=== PATIENT | male | born 1995 | race Hispanic/Latino ===

== ENCOUNTER 2023-04-14 10:13 | Emergency (ER) | payer OTHER ==
[2023-04-14] MEDS ORDERED: LIDOCAINE 1% MPF 5 ML VIAL ONE (10:48)
--- NOTE | 2023-04-14 10:57 | EDPHYS ---
Physician Documentation [facility] Name: Jesus Hernandez Age: 27 yrs Sex: Male : 1995 Arrival Date: 04/14/2023 Time: 10:13 Bed 11 Private MD: ED Physician Karl Lawrence HPI: 04/14 10:21 This 27 yrs old Male presents to ER via Ambulatory with complaints of jh7 Laceration To Hand. 10:21 The patient has a laceration related to: working, from a knife, occurred at work, and 7 pt reports knife was dirty. The laceration(s) is(are) located on the left hand. Onset: The symptoms/episode began/occurred acutely. Associated signs and symptoms: Pertinent negatives: deformity, dizziness, heavy bleeding, loss of consciousness, suspected foreign body. Historical: - Allergies: 10:21 No Known Allergies; ll1 - PMHx: 10:21 None; ll1 - PSHx: 10:21 Appendectomy; ll1 - Immunization history:: Adult Immunizations up to date. - Social history:: Smoking status: Patient denies any tobacco usage or history of. ROS: 10:21 Constitutional: Negative for fever, chills, and weight loss, Eyes: Negative for injury, jh7 pain, redness, and discharge, Neck: Negative for injury, pain, and swelling, Cardiovascular: Negative for chest pain, palpitations, and edema, Respiratory: Negative for shortness of breath, cough, wheezing, and pleuritic chest pain, Abdomen/GI: Negative for abdominal pain, nausea, vomiting, diarrhea, and constipation, Back: Negative for injury and pain, MS/Extremity: Negative for injury and deformity, Neuro: Negative for headache, weakness, numbness, tingling, and seizure. 10:21 Skin: Positive for laceration(s). 10:21 All other systems are negative. Exam: 10:21 Constitutional: This is a well developed, well nourished patient who is awake, alert, jh7 and in no acute distress. Head/Face: Normocephalic, atraumatic. Cardiovascular: Regular rate and rhythm with a normal S1 and S2. No gallops, murmurs, or rubs. Normal PMI, no JVD. No pulse deficits. Respiratory: Lungs have equal breath sounds bilaterally, clear to auscultation and percussion. No rales, rhonchi or wheezes noted. No increased work of breathing, no retractions or nasal flaring. Abdomen/GI: Soft, non-tender, with normal bowel sounds. No distension or tympany. No guarding or rebound. No evidence of tenderness throughout. MS/ Extremity: Pulses equal, no cyanosis. Neurovascular intact. Full, normal range of motion. Neuro: Awake and alert, GCS 15, oriented to person, place, time, and situation. Motor strength 5/5 in all extremities. Sensory grossly intact. Normal gait. 10:21 Skin: injury, laceration(s), the wound is approximately 1.5 cm(s), of the dorsum of the L hand, between first and second metacarpals. Vital Signs: 10:22 BP 147 / 89; Pulse 80; Resp 16; Temp 98.8; Pulse Ox 100% ; Weight 78.02 kg; Height 5 ll1 ft. 6 in. ; Pain 5/10; 11:40 BP 150 / 83; Pulse 70; Resp 16; Pulse Ox 100% ; Pain 0/10; ll1 10:22 Body Mass Index 27.76 (78.02 kg, 167.64 cm) ll1 10:22 Pain Scale: Adult ll1 11:40 Pain Scale: Adult ll1 Laceration: 10:21 Wound Repair of 1.5cm ( 0.6in ) subcutaneous laceration to left hand. Distal jh7 neuro/vascular/tendon intact. Anesthesia: Local anesthetic administered with 4 mls of 1% lidocaine. Wound prep: Simple cleansing by me. Skin closed with 3 5-0 Prolene using simple sutures and sterile technique. Dressed with non-adherent dressing. Patient tolerated well. MDM: 10:15 Patient medically screened. [facility] 11:20 Differential diagnosis: superficial laceration. Data reviewed: vital signs, nurses [facility] notes. I considered the following discharge prescriptions or medication management in the emergency department Medications were administered in the Emergency Department. See MAR. Counseling: I had a detailed discussion with the patient and/or guardian regarding the historical points, exam findings, and any diagnostic results supporting the discharge/admit diagnosis, the need for outpatient follow up, for suture removal, to return to the emergency department if symptoms worsen or persist or if there are any questions or concerns that arise at home. 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 1 Exp: 09/01/2023. Lot #: [id number]. } Route: IM; Site: right deltoid; 13:08 Follow up: Response: No adverse reaction [facility] Disposition: 15:40 Co-signature as Attending Physician, Karl Lawrence MD I reviewed the patient's care rn provided by the Advanced Practice Provider and agree with the diagnosis and treatment plan. Disposition Summary: 04/14/23 10:57 Discharge Ordered Location: Home [facility] Problem: new [facility] Symptoms: have improved [facility] Condition: Stable [facility] Diagnosis - Laceration without foreign body of left hand [facility] Followup: [facility] - With: Private Physician - When: 7 - 10 days - Reason: Staple/Suture removal Discharge Instructions: - Discharge Summary Sheet [facility] - Laceration Care, Adult, Mriw-ke-Cgch [facility] Forms: - Work release form [facility] - Medication Reconciliation Form [facility] - Thank You Letter [facility] - Antibiotic Education [facility] - Patient Portal Instructions [facility] - Leadership Thank You Letter [facility] Prescriptions: - Cephalexin 500 mg Oral Capsule - take 1 capsule by ORAL route every 12 hours for 7 days; 14 capsule; Refills: 0, jh7 Product Selection Permitted Signatures: Karl Lawrence MD MD rn Lewis, Lynsay, RN RN [facility] Nora Lou FNP FNP [facility]
--- NOTE | 2023-04-14 10:57 | ER ---
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 Bleeding controlled with ll1 dressing in place. States thumb area feel numb. Coronavirus screen: Vaccine status: Patient reports being unvaccinated. Client denies travel out of the [place] in the last 14 days. At this time, the client does not indicate any symptoms associated with coronavirus-19. Ebola Screen: Patient denies travel to an Ebola-affected area in the 21 days before illness onset. Complicating Factors: There are no complicating factors for this patient. Initial Sepsis Screen: Does the patient meet any 2 criteria? No. Patient's initial sepsis screen is negative. Does the patient have a suspected source of infection? Yes: Skin breakdown/wound. Risk Assessment: Do you want to hurt yourself or someone else? Patient reports no desire to harm self or others. Onset of symptoms was April 14, 2023. 10:22 Method Of Arrival: Ambulatory ll1 10:22 Acuity: MADELAINE 3 ll1 Triage Assessment: 10:37 General: Appears uncomfortable, Behavior is calm, cooperative, appropriate for age. ll1 Pain: Complains of pain in left hand Quality of pain is described as aching. Derm: <2 cm laceration anterior L hand. Bleeding controlled Reports laceration L hand. Musculoskeletal: Circulation, motion, and sensation intact. Capillary refill < 3 seconds. Injury Description: Laceration. Historical: - Allergies: 10:21 No Known Allergies; ll1 - PMHx: 10:21 None; ll1 - PSHx: 10:21 Appendectomy; ll1 - Immunization history:: Adult Immunizations up to date. - Social history:: Smoking status: Patient denies any tobacco usage or history of. Screenin:38 [facility] ED Fall Risk Assessment (Adult) Score/Fall Risk Level 0 - 2 = Low Risk ll1 Oriented to surroundings, Maintained a safe environment, Educated pt \T\ family on fall prevention, incl call for assistance when getting out of bed, Hourly rounding (assess needs \T\ fall precautionary measures) done. Abuse screen: Denies threats or abuse. Nutritional screening: No deficits noted. Tuberculosis screening: No symptoms or risk factors identified. Assessment: 10:50 Injury Description: Laceration is clean, 0.5 to 2.5 cm long, not bleeding. ll1 11:00 Reassessment: No changes from previously documented assessment. Patient and/or family ll1 updated on plan of care and expected duration. Pain level reassessed. Patient is alert, oriented x 3, equal unlabored respirations, skin warm/dry/pink. 11:18 Reassessment: No changes from previously documented assessment. Patient and/or family ll1 updated on plan of care and expected duration. Pain level reassessed. Patient is alert, oriented x 3, equal unlabored respirations, skin warm/dry/pink. 11:40 Reassessment: No changes from previously documented assessment. Patient and/or family ll1 updated on plan of care and expected duration. Pain level reassessed. Patient is alert, oriented x 3, equal unlabored respirations, skin warm/dry/pink. Vital Signs: 10:22 BP 147 / 89; Pulse 80; Resp 16; Temp 98.8; Pulse Ox 100% ; Weight 78.02 kg; Height 5 ll1 ft. 6 in. ; Pain 5/10; 11:40 BP 150 / 83; Pulse 70; Resp 16; Pulse Ox 100% ; Pain 0/10; ll1 10:22 Body Mass Index 27.76 (78.02 kg, 167.64 cm) ll1 10:22 Pain Scale: Adult ll1 11:40 Pain Scale: Adult ll1 ED Course: 10:14 Patient arrived in ED. rg4 10:15 Nora Lou FNP is PHCP. jh7 10:15 Karl Lawrence MD is Attending Physician. jh7 10:23 Triage completed. ll1 10:23 Arm band placed on. ll1 10:31 Radha Meek, LATIA is Primary Nurse. ll1 10:31 Patient placed in an exam room, on a stretcher. ll1 10:39 Patient has correct armband on for positive identification. Bed in low position. Call ll1 light in reach. 11:10 Dressings: Kerlix X 1; left hand non-adherent dressing x 1 left hand. ll1 11:41 No provider procedures requiring assistance completed. Patient did not have IV access ll1 during this emergency room visit. 13:10 Provided Education on: sutures out 7-10 days. 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 ll1 Exp: 09/01/2023. Lot #: [id number]. } Route: IM; Site: right deltoid; 13:08 Follow up: Response: No adverse reaction [facility] Medication: 10:39 VIS not applicable for this client. 1 Outcome: 10:57 Discharge ordered by MD. cohen 11:41 Patient left the ED. 1 11:41 Discharged to home ambulatory. 1 11:41 Condition: stable 11:41 Discharge instructions given to patient, Instructed on discharge instructions, follow up and referral plans. medication usage, wound care, Demonstrated understanding of instructions, follow-up care, medications, wound care, Prescriptions given X 1. Signatures: Deborah Abad4 Radha Meek RN RN [facility] Nora Lou FNP FNP [facility]
[2023-04-14] MEDS ORDERED: TDAP (DIPHTH,PERTUSS(ACELL),TET VAC) 0.5 ML VIAL IMVAC ONE (11:25)
[2023-04-14 11:45] VITALS: BP 147/89; TEMP 98.8; O2SAT 100
== END 2023-04-14 11:41 | disposition home or self-care (01) ==
LOC: ER 10:13
PROC: 0HQGXZZ Repair Left Hand Skin, External Approach (ICD-10-PCS; principal; 2023-04-14)
DX: S61.412A Laceration without foreign body of left hand, initial encounter (principal); Z23 Encounter for immunization
CPT/HCPCS: 90471; 99284; 12001; J2001